=== PATIENT | male | born 1960 | race Caucasian/White ===

== ENCOUNTER 2019-03-20 00:42 | Emergency (ER) | payer OTHER ==
[~2019-03-20] VITALS: Ht 180.3 cm; Wt 79.4 kg
[~2019-03-20 00:42] MED LIST: HYDROCODONE-AP1 EAC6 PO; IBUPROFEN 800800 M1 PO
[2019-03-20] MEDS ORDERED: REQUIP 0.25 M0.25 MG PO (01:27)
[2019-03-20 01:30] VITALS: BP 126/66
== END 2019-03-20 01:30 | disposition home or self-care (01) ==
LOC: M.ERS 00:42
DX: I82.811 Embolism and thrombosis of superficial veins of right lower extremity (principal)

== ENCOUNTER 2019-04-22 17:26 | Inpatient (IN) | payer OTHER ==
[2019-04-22] VITALS (10 sets, daily range): BP systolic 103–125; BP diastolic 48–70
[~2019-04-22] VITALS: Ht 180.3 cm; Wt 80.7 kg
[~2019-04-22 17:26] MED LIST changes: +REQUIP 0.25 M0.25 MG PO
[2019-04-22 18:01] LABS: ABSOLUTE EOSINOPHILS 0.1 thou/uL (0.0-0.7); ABSOLUTE LYMPHOCYTES 1.9 thou/uL (0.8-5.3); ABSOLUTE MONOCYTES 0.6 thou/uL (0.0-1.2); ABSOLUTE NEUTROPHILS 4.4 thou/uL (1.6-8.1); BASOPHILS 0.6 %; EOSINOPHILS 1.2 %; HEMATOCRIT 42.9 % (42.0-52.0); HEMOGLOBIN 14.7 gm/dL (14.0-18.0); MCH 29.5 pg (26.0-34.0); MCHC 34.2 g/dL (28.0-37.0); MCV 86.3 fL (80.0-100.0); MONOCYTES 8.3 %; MPV 8.5 fl. (7.2-11.1); NUCLEATED RBCS 0 /100WBC; PLATELET COUNT* 238 thou/uL (150-400); POLYS 62.9 %; RBC 4.98 mil/uL (4.50-6.00); RDW-CV 13.7 % (10.5-14.5)
[2019-04-22 18:09] LABS: CALCIUM 9.3 mg/dL (8.5-10.1); CREATININE 1.2 mg/dL (0.6-1.3); POTASSIUM 3.1 mmol/L (3.5-5.1)
[2019-04-22 18:13] LABS: ALBUMIN 4.1 g/dL (3.4-5.0); TOTAL BILIRUBIN 0.4 mg/dL (<0.1-1.0); TOTAL PROTEIN 7.2 g/dL (6.4-8.2)
[2019-04-22 18:19] LABS: PROTIME 10.5 Seconds (9.20-11.50)
--- NOTE | 2019-04-22 18:43 | NUR ---
CALLED PHARMACY FOR TPA SPOKE TO FIONA LINDSAY GIVEN PER BED SCALE
--- NOTE | 2019-04-22 19:10 | NUR ---
ASSUMED PT CARE FROM SHANTI GORDON
--- NOTE | 2019-04-22 19:10 | NUR ---
SEE STROKE FLOW SHEET
--- NOTE | 2019-04-22 22:30 | NUR ---
PT. ADMITTED TO ROOM 2 AT 2110. ORIENTED, BUT SLOW TO ANSWER QUESTIONS. NIH 3. BP'S WITHIN NORMAL LIMITS. NORMAL SINUS RHYTHM. ROOM AIR. PT'S STATED HE HAD PREVIOUS EPISODE LIKE THIS IN 2013. ORIENTED TO ROOM, ADMISSION ASSESSMENT DONE. SEE CHARTING. CALL LIGHT IN REACH, WILL CONTINUE TO MONITOR.
[2019-04-23] VITALS (33 sets, daily range): BP systolic 90–130; BP diastolic 19–83
[2019-04-23 05:07] LABS: ABSOLUTE LYMPHOCYTES 1.1 thou/uL (0.8-5.3); ABSOLUTE MONOCYTES 0.9 thou/uL (0.0-1.2); ABSOLUTE NEUTROPHILS 9.4 thou/uL (1.6-8.1); BASOPHILS 0.2 %; EOSINOPHILS 0.1 %; HEMATOCRIT 42.5 % (42.0-52.0); HEMOGLOBIN 14.6 gm/dL (14.0-18.0); LYMPHOCYTES 9.3 %; MCH 29.7 pg (26.0-34.0); MCHC 34.3 g/dL (28.0-37.0); MCV 86.5 fL (80.0-100.0); MONOCYTES 7.6 %; MPV 9.3 fl. (7.2-11.1); NUCLEATED RBCS 0 /100WBC; PLATELET COUNT* 223 thou/uL (150-400); POLYS 82.8 %; RBC 4.91 mil/uL (4.50-6.00); RDW-CV 13.9 % (10.5-14.5); WBC 11.3 thou/uL (4.0-11.0)
[2019-04-23 05:33] LABS: ALBUMIN 3.8 g/dL (3.4-5.0); CALCIUM 8.4 mg/dL (8.5-10.1); CREATININE 0.9 mg/dL (0.6-1.3); POTASSIUM 4.1 mmol/L (3.5-5.1); TOTAL PROTEIN 6.5 g/dL (6.4-8.2)
[2019-04-23] MEDS ORDERED: ADVIL200 M3 PO (05:48)
--- NOTE | 2019-04-23 06:11 | NUR ---
PT. PROGRESSING TOWARDS GOALS. NIH 0 AT THIS TIME. SLEPT WELL THROUGHOUT SHIFT, NO COMPLAINTS OF PAIN. ALERT AND ORIENTED. IVF INFUSING, TO BE DC'D AFTER THIS BAG. SINUS RHYTHM, BP'S WITHIN NORMAL LIMITS. CALL LIGHT IN REACH, WILL CONTINUE TO MONITOR.
[2019-04-23 13:34] LABS: URINE BILIRUBIN NEGATIVE (Negative); URINE BLOOD TRACE (Negative); URINE CLARITY CLEAR; URINE COLOR YELLOW; URINE GLUCOSE-RANDOM NEGATIVE (Negative); URINE KETONES NEGATIVE (Negative); URINE LEUKOCYTES-REFLEX NEGATIVE (Negative); URINE NITRITE-REFLEX NEGATIVE (Negative); URINE PROTEIN NEGATIVE (Negative); URINE SPECIFIC GRAVITY 1.025 (1.005-1.030); URINE UROBILINOGEN 0.2 E.U./dl (0.2-1.0)
--- NOTE | 2019-04-23 15:41 | 2DMMODE ---
[place] [address] 2 D/M-MODE ECHOCARDIOGRAM Name: OLEGARIO SOLIS Room: [address] IN .R.#: [id number] Admission: 04/22/19 Attend Phys: Mac Camarena Discharge: Date of : 56 Date of Service: 04/23/19 1541 Report #: [id number] THIS REPORT FOR: //name// APPROVED REPORT Study performed: 04/23/2019 13:01:33 EXAM: Comprehensive 2D, Doppler, and color-flow Echocardiogram Patient Location: In-Patient BSA: 2.01 HR: 65 bpm BP: 120/67 mmHg Rhythm: NSR Other Information Study Quality: Good Indications CVA/TIA Echo Enhancing Agent Indication: Rule out Shunt Agent(s) / Amount(s) Used: Agitated Saline 10 cc 2D Dimensions IVSd: 9.65 (7-11mm) LVOT Diam: 20.17 (18-24mm) LVDd: 45.40 mm PWd: 7.83 (7-11mm) Ascending Ao: 31.94 (22-36mm) LVDs: 25.94 (25-40mm) Aortic Root: 33.71 mm Volumes Left Atrial Volume (Systole) LA ESV Index: 25.00 mL/m2 Aortic Valve AoV Peak Castillo.: 1.32 m/s AO Peak Gr.: 6.97 mmHg LVOT Max P.31 mmHg AO Mean Gr.: 3.53 mmHg LVOT Mean P.61 mmHg LVOT Max V: 1.26 m/s AO V2 VTI: 22.90 cm LVOT Mean V: 0.73 m/s ROSEMARY (VTI): 3.29 cm2 LVOT V1 VTI: 23.59 [place] [address] 2 D/M-MODE ECHOCARDIOGRAM Name: OLEGARIO SOLIS Room: [address] IN ..#: [id number] Admission: 04/22/19 Attend Phys: Mac Camarena Discharge: Date of : 56 Date of Service: 04/23/19 1541 Report #: [id number] E/A Ratio: 1.34 MV Decel. Time: 178.19 ms MV E Max Castillo.: 0.55 m/s MV PHT: 51.67 ms MVA (PHT): 4.26 cm2 TDI E/Lateral E': 5.00 E/Medial E': 5.50 Medial E' Castillo.: 0.10 m/s Lateral E' Castillo.: 0.11 m/s Pulmonary Valve PV Peak Castillo.: 0.84 m/s PV Peak Gr.: 2.80 mmHg Tricuspid Valve RAP Estimate: 5.00 mmHg TR Peak Gr.: 17.88 mmHg RVSP: 32.00 mmHg PA Pressure: 32.00 mmHg Left Ventricle The left ventricle is normal size. There is normal LV segmental wall motion. There is normal left ventricular wall thickness. Left ventricular systolic function is normal. LVEF is 60-65%. The left ventricular diastolic function is normal. Right Ventricle The right ventricle is normal size. The right ventricular systolic function is normal. Atria The left atrium size is normal. Interatrial septum is intact without evidence of ASD or PFO. The right atrium size is normal. Aortic Valve The aortic valve is normal in structure. No aortic regurgitation is present. There is no aortic valvular stenosis. Mitral Valve The mitral valve is normal in structure. Trace mitral regurgitation. No evidence of mitral valve stenosis. Tricuspid Valve The tricuspid valve is normal in structure. Trace tricuspid regurgitation. No pulmonary hypertension[place] [address] 2 D/M-MODE ECHOCARDIOGRAM Name: WILLOLEGARIO Jeanette Room: [address]#: [id number] Admission: 04/22/19 Attend Phys: Mac Camarena Discharge: Date of : 56 Date of Service: 04/23/19 1541 Report #: [id number] The pulmonary valve is normal in structure. There is no pulmonic valvular regurgitation. Great Vessels The aortic root is normal in size. IVC is normal in size and collapses >50% with inspiration. Pericardium There is no pericardial effusion. <Conclusion> The left ventricle is normal size. There is normal left ventricular wall thickness. Left ventricular systolic function is normal. LVEF is 60-65%. The left ventricular diastolic function is normal. Interatrial septum is intact without evidence of ASD or PFO. Trace mitral regurgitation. Trace tricuspid regurgitation. No pulmonary hypertension. IVC is normal in size and collapses >50% with inspiration. <ELECTRONICALLY SIGNED> By: Geronimo Segura MD, FACC 04/23/19 1541 1541 1541 Geronimo Segura MD, FACC /INF
--- NOTE | 2019-04-23 15:51 | EKG ---
[place] [address] ELECTROCARDIOGRAM REPORT Name: OLEGARIO SOLIS Room: [address] ADM IN .R.#: [id number] Admission: 04/22/19 Attend Phys: Amarilys Rivera Discharge: Date of : 56 Report #: [id number] THIS REPORT FOR: //name// [facility] ED Test Date: 2019-04-22 Test Time: 17:31:45 Pat Name: OLEGARIO SOLIS Department: Room: [facility] Gender: M Manager Critical Care Unit: : [id number] Requested By: Cody Gilmore Order Number: [id number] MD: Alex Thomas Measurements Intervals [place] Rate: 106 P: 77 WA: 125 QRS: 71 QRSD: 90 T: 53 QT: 357 QTc: 475 Interpretive Statements Sinus tachycardia Ventricular premature complex RSR' in V1 or V2, probably normal variant Compared to ECG 01/18/2015 19:39:42 Ventricular premature complex(es) now present RSR' in V1 or V2 now present Sinus rate has increased Electronically Signed On 04-23-2019 15:51:13 HUMAN SERVICES INSTRUCTOR by Alex Thomas [email or web address] <ELECTRONICALLY SIGNED> By: Alex Thomas MD, [facility] 04/23/19 1551 1731 1731 Alex Thomas MD, [facility] /EPI
--- NOTE | 2019-04-23 16:40 | NUR ---
Pt lives at home with his . Pt has extended family support. Pt alert and oriented but slow to respond at times according to pt nurse. Pt did not us any assistive devices for mobility or ADLs prior to stroke. SW to continue to follow to assist with safe dc planning.
--- NOTE | 2019-04-23 17:33 | NUR ---
PT IS A/O X4,VSS,TRACING SR ON THE MONITOR.Q1 HOUR NIH = 0.PT PROGRESSING TOWARDS GOALS.C/O HEADACHE AND NAUSEA-MEDICATIONS GIVEN.DOCOTOR NOTIFIED.IV PATENT AND SALINE LOCKED.SPEECH THERAPY SAW PT AND RESUMED REGULAR DIET WITH THIN LIQUIDS.PT HAS HAD POOR APPETITE THROUGHTOUT SHIFT.OT WORKED WITH PT.ECHO COMPELETED.EEG COMPLETED.PT INFORMED OF PLAN OF CARE AND COMMUNICATES UNDERSTANDING.HOURLY ROUNDING COMPLETED FOR PT SAFETY.CALL LIGHT AND FALL PRECAUTIONS IN PLACE.WILL CONTINUE TO MONITOR FOR DURATION.
[2019-04-24] VITALS (10 sets, daily range): BP systolic 87–140; BP diastolic 38–86
--- NOTE | 2019-04-24 06:56 | NUR ---
VSS. NIH REMAINS ZERO. 24HR POST TPA HEAD CT PERFORMED LAST NOC, RESULTS SHOW NO INTRACRANIAL HEMORRHAGE. PT HAS DENIED PAIN, NAUSEA, AND SOA TONIGHT. PT TURNS SELF INDEPENDENTLY IN BED. CALL LIGHT WITHIN REACH.
[2019-04-24] MEDS ORDERED: MINOCYCLINE HC100 M2 PO (08:52)
[2019-04-24] MEDS ORDERED: LIPITOR40 MG PO (08:52)
[2019-04-24 09:14] LABS: CHOLESTEROL 165 mg/dL (<200); HDL CHOLESTEROL 41 mg/dL (>40); LDL CHOLESTEROL 109 mg/dL (<100); SERUM ASSESSMENT Clear; TRIGLYCERIDE 78 mg/dL (<150); VLDL 16 mg/dL (<40)
[2019-04-24] MEDS ORDERED: ASA81BEC PO (10:59)
--- NOTE | 2019-04-24 12:42 | NUR ---
PT A/O X4,VSS,PIPING DRAFTER IN PLACE.NO C/O PAIN.NO C/O NAUSEA.PT AMBULATED IN HALLWAY WITH PHYSICAL THERAPY.PT OK FOR DISCHARGE.PAPERWORK COMPLETED AND GIVEN TO THE PT.SCRIPTS CALLED INTO [address] IV X2 REMOVED.
--- NOTE | 2019-04-24 13:07 | NUR ---
ALL PERSONAL BELONGINGS PACKED AND TAKEN WITH PT.PT WHEELED OUT TO PERSONAL VEHICLE WITH NURSING STAFF.PT AND REMINDED THAT SCR[facility] WERE CALLED IN TO PHARMACY.
--- NOTE | 2019-04-24 13:36 | CON ---
[address] [address] CONSULTATION Name: OLEGARIO SOLIS Room: [address] IN .R.#: [id number] Admission: 04/22/19 Attend Phys: Amarilys Rivera Discharge: 04/24/19 Date of : 56 Report #: [id number] THIS REPORT FOR: //name// CC: Zbigniew Camarena DATE OF SERVICE: 04/23/2019 HISTORY OF PRESENT ILLNESS: This is a 59-year-old male patient whose extensive record from Emergency Room was reviewed. This patient had presented with altered mental status and he was given TPA and his symptoms have resolved. He had a prior episode like this before. The detail is summarized in this patient's ER note and the note from Dr. Camarena as a student and the patient confirmed that and that will not be repeated here. REVIEW OF SYSTEMS: Indicate he had a similar episode in the past. He denies any history of depression or anxiety, but was tearful during this episode. He has no complication from TPA and it does look like he had some jerking activities on the right side. Rest of the 14-point review of systems was mostly unremarkable. PAST MEDICAL HISTORY: Positive for some cyst removal in the neck and the patient is on . FAMILY HISTORY: Unremarkable. SOCIAL HISTORY: To me, he tells me he does not drink alcohol on a regular basis. PHYSICAL EXAMINATION: GENERAL: Indicates he is alert, responsive, able to follow simple and complex command. NEUROLOGIC: His speech, concentration, fund of knowledge and memory is at his baseline. His cranial nerve examination and neuromuscular examination is unremarkable. No cerebellar sign. I could not look at the patient's fundus. He is moderately built individual who does not have any dysmorphic features of eyes, ears and face. His vision and hearing looks adequate. CARDIAC: Examination was unremarkable. RESPIRATORY: No respiratory difficulty was noticed. DIAGNOSTIC STUDIES: His MRI and MRA were reviewed and they were unremarkable. IMPRESSION: An episode of altered mental status, the etiology of which is not clear. His symptoms have resolved after TPA and he does not have any significant stenosis or anything which requires intervention on the MRI or MRA. His symptoms resolved after TPA and he has no evidence [place] [address] CONSULTATION Name: WILLOLEGARIO Room: [address]#: [id number] Admission: 04/22/19 Attend Phys: Amarilys Rivera Discharge: 04/24/19 Date of : 56 Report #: [id number] TPA. Since his workup is unremarkable, I will do some other workup to determine the etiology of his symptoms. We will get an EEG done. We will talk to the family to corroborate his history further. He may need some workup as an outpatient and I discussed all of it with the patient. <ELECTRONICALLY SIGNED> By: Eric Shirley MD 04/24/19 [id number] [id number] Shirley MD /nt
== END 2019-04-24 13:08 | disposition home or self-care (01) | DRG 61 ==
LOC: M.ERS 17:26 → M.ICU 18:57 → M.TBA-ER 18:57 → M.ICU 19:45
PROVIDERS: Emergency Medicine Emergency Medical Services; ADMIT Internal Medicine
PROC: 3E03317 Introduction of Other Thrombolytic into Peripheral Vein, Percutaneous Approach (ICD-10-PCS; principal; 2019-04-23)
PROC: 4A00X4Z Measurement of Central Nervous Electrical Activity, External Approach (ICD-10-PCS; 2019-04-24)
DX: I63.9 Cerebral infarction, unspecified (principal); G93.41 Metabolic encephalopathy; E87.6 Hypokalemia; R29.707 NIHSS score 7; Z86.718 Personal history of other venous thrombosis and embolism; Z79.82 Long term (current) use of aspirin; Z79.899 Other long term (current) drug therapy